=== PATIENT | female | born 1960 | race Caucasian/White ===

== ENCOUNTER 2019-09-11 08:42 | Emergency (ER) | payer OTHER, SELFPAY ==
[2019-09-11 08:52] VITALS: BP 128/77; PULSE 70; RESP 20; TEMP 36.7; O2SAT 100
--- NOTE | 2019-09-11 08:58 | ED.URI ---
HPI - URI/Sore Throat General Chief Complaint: Upper Respiratory Infection Stated Complaint: sinus infection Time Seen by Provider: 09/11/19 09:10 Source: patient and RN notes reviewed Mode of arrival: ambulatory Limitations: no limitations History of Present Illness HPI Narrative: 59-year-old female presents with concern for sinus congestion, cough. Reports 3-week history of cough, 1 week history of sinus congestion, sinus pain, postnasal drainage. She denies fever, chills, malaise. Reports taking [id number] medications with little relief. MD elicited complaint: nasal congestion Related Data Home Medications Medication Instructions Recorded Confirmed alendronate 09/11/19 atenolol 09/11/19 Allergies Allergy/AdvReac Type Severity Reaction Status Date / Time No Known Allergies Allergy Verified 09/11/19 09:10 Review of Systems Review of Systems: Narrative: CONSTITUTIONAL: Denies malaise, chills, sweats, or fever. EYES: Denies visual changes, redness, or discharge. ENT: Reports rhinorrhea, congestion, sinus pain. Denies otalgia and sore throat. CARDIOVASCULAR: Denies chest pain, palpitations, or edema. RESPIRATORY: Reports cough. Denies dyspnea. GASTROINTESTINAL: Denies abdominal pain, nausea, vomiting, diarrhea SKIN: Denies rash or itching. MUSCULOSKELETAL: Denies myalgia. NEUROLOGIC: Denies headache. All systems reviewed & are unremarkable except as noted in HPI and below PMFSH Comments At time of signature, agree with nursing past medical, surgical, social and family history. There is no relevant family history pertinent to the presenting complaint Exam Narrative: Exam Narrative: GENERAL: Well-appearing, well-nourished, and in no acute distress. HEAD: Normocephalic EYES: PERRLA, conjunctivae clear ENT: Nares clear, turbinates edematous and erythematous, sinus tenderness. Mucous membranes moist. TM pearly hawkins with dull light reflex bilaterally; no tragal tenderness. Oropharynx not erythematous without lesions. Tonsils not enlarged and without exudate, no drooling, no hoarseness, no trismus. NECK: Supple. No lymphadenopathy CHEST: Clear to auscultation, breath sounds equal. No wheezing, rhonchi, rales, or stridor. No respiratory distress, speaks in full sentences. Cough noted HEART: Regular rate and rhythm. No murmur heard. Normal peripheral pulses. SKIN: Warm, dry, no rash. NEURO: Alert and oriented x3. PSYCH: Normal mood and affect Course Course Emergency Course: Patient is aware of diagnosis, understands and agrees to treatment plan. Anticipatory guidance given. Patient agrees to follow-up as directed and is aware of reasons to seek care at the emergency department. Portions of this record may have been created with voice recognition software Vital Signs Vital signs: Vital Signs Temperature 98.0 F 09/11/19 08:52 Pulse Rate 70 09/11/19 08:52 Respiratory Rate 20 09/11/19 08:52 Blood Pressure 128/77 09/11/19 08:52 Pulse Oximetry 100 09/11/19 08:52 Temperature 98.0 F 09/11/19 08:52 Pulse Rate 70 09/11/19 08:52 Respiratory Rate 20 09/11/19 08:52 Blood Pressure 128/77 09/11/19 08:52 Pulse Oximetry 100 09/11/19 08:52 Reviewed. Patient has current diagnosis of hypertension MDM - URI/Sore Throat MDM Narrative Medical decision making narrative: Differential diagnosis considered: Strep pharyngitis, allergic rhinitis, upper respiratory tract infection, sinusitis, rhinosinusitis, nasopharyngitis. viral pharyngitis, otitis media, otitis externa, pneumonia, bronchitis, viral cough syndrome, viral syndrome, and influenza. Exam findings show no acute concerns or changes; patient is non-toxic appearing and is in no distress. Patient is appropriate for outpatient treatment and follow-up. Critical Care Time Critical Care Time Critical Care Time: No Discharge Plan Discharge Clinical Impression: Sinobronchitis Patient Disposition: Home, Self-Care Condition: Stab
== END 2019-09-11 09:30 | disposition home or self-care (01) ==
PROVIDERS: Emergency Provider Nurse Practitioner
DX: J32.9 Chronic sinusitis, unspecified (principal); J40 Bronchitis, not specified as acute or chronic; I10 Essential (primary) hypertension
CPT/HCPCS: 99213; G0463

== ENCOUNTER 2020-02-05 11:37 | Outpatient (CLI) | payer OTHER, SELFPAY | END 2020-02-05 11:38 | disposition home or self-care (01) | LOC: CHSLAB 11:42 | PROVIDERS: PCP Family Medicine; Visit Provider Nurse Practitioner | DX: R05 Cough (principal) | CPT/HCPCS: 36415; 86769 ==

== ENCOUNTER 2020-04-03 07:57 | Outpatient (CLI) | payer OTHER, SELFPAY ==
--- NOTE | ~2020-04-03 | MM_ITS ---
EXAMINATION: MM screening [facility] BI w [place] HISTORY: Screening mammogram TECHNIQUE: Craniocaudal and mediolateral oblique 3-D tomosynthesis images were obtained and synthetic 2-D images were generated. CAD analysis was submitted and interpreted. COMPARISON: 04/01/2019, 03/30/2018, 03/20/2017 bilateral digital screening mammogram examinations BREAST PARENCHYMAL COMPOSITION: There are scattered areas of fibroglandular density. FINDINGS: There is no evidence of suspicious mass, calcification, or architectural distortion to sugg est malignancy in either breast. There has been no suspicious interval change. IMPRESSION: 1. No mammographic evidence of malignancy. 2. Recommend routine screening mammography in one year. BI-RADS Category 1: Negative Reviewed, dictated and finalized at location A.
== END 2020-04-03 07:58 | disposition home or self-care (01) ==
LOC: CHSIMG 07:59
PROVIDERS: PCP Family Medicine; Visit Provider Nurse Practitioner
DX: Z12.31 Encounter for screening mammogram for malignant neoplasm of breast (principal)
CPT/HCPCS: 77063; 77067

== ENCOUNTER 2020-08-01 09:31 | Outpatient (CLI) | payer OTHER, SELFPAY ==
[2020-08-01 10:23] LABS: Alanine Aminotransferase 32 U/L (14-59); Albumin Level 3.9 g/dL (3.4-5.0); Alkaline Phosphatase 120 U/L (46-116); Anion Gap 5 mmol/L (8-16); Aspartate Amino Transferase 17 U/L (15-37); Bilirubin,Total 0.6 mg/dL (0.00-1.00); Blood Urea Nitrogen 11 mg/dL (7-18); Calcium 9.2 mg/dL (8.5-10.1); Carbon Dioxide 31 mmol/L (21-32); Chloride 104 mmol/L (98-108); Cholesterol 180 mg/dL (0-200); Estimated Glomerular Filt Rate > 60; Glucose 100 mg/dL (70-99); HDL Direct 60 mg/dL (40-60); LDL Cholesterol Calculated 104 mg/dL (<130); Osmolality Calculated 289 mOsm/kg (285-295); Potassium 4.8 mmol/L (3.5-5.1); Sodium 140 mmol/L (136-145); Total Protein 7.6 g/dL (6.4-8.2); Triglycerides 78 mg/dL (0-150)
[2020-08-01 10:32] LABS: Thyroid Stimulating Hormone Reflex 1.59 u/IU/mL (0.36-3.74)
[2020-08-03 11:53] LABS: Vitamin D 25 Hydroxy 55 ng/mL (30-100)
== END 2020-08-01 09:32 | disposition home or self-care (01) ==
PROVIDERS: PCP Family Medicine; Visit Provider Nurse Practitioner
DX: M88.9 Osteitis deformans of unspecified bone (principal); E78.2 Mixed hyperlipidemia; I10 Essential (primary) hypertension
CPT/HCPCS: 36415; 80053; 80061; 82306; 84443

== ENCOUNTER 2020-09-11 14:21 | Outpatient (CLI) | payer OTHER, SELFPAY ==
--- NOTE | ~2020-09-11 | DEXA_ITS ---
Bone Density Report Name: Jazzmine Moya Age: 60 Sex: Female Ethnicity: White Date of : 1960 Indication: osteopenia; height loss; Referring Provider: Tushar, Deb Sloan Study: Bone densitometry was performed. Exam Date: September 11, 2020 Accession number: [id number] Bone Density: Region BMD T-score Z-score Classification AP Spine(L1-L4) 0.933 -1.0 0.5 Normal Femoral Neck (Left) 0.759 -0.8 0.6 Normal Total Hip (Left) 0.882 -0.5 0.6 Normal Femoral Neck (Right) 0.664 -1.7 -0.3 Osteopenia Total Hip (Right) 0.783 -1.3 -0.2 Osteopenia Femoral Neck Mean 0.712 -1.2 0.1 Osteopenia Total Hip Mean 0.833 -0.9 0.2 Normal World Health Organization criteria for BMD impression classify patients as: Normal (T-score at or above -1.0), Osteopenia (T-score between -1.0 and -2.5), or Osteoporosis (T-score at or below -2.5). 10-year Fracture Risk(1): Major Osteoporotic Fracture 8.7% Hip Fracture 0.8% Reported Risk Factors: [place] (), Neck BMD=0.664, BMI=28.2 (1) FRAX(R) Version 3.08. Fracture probability calculated for an untreated patient. Fracture probability may be lower if the patient has received treatment. Previous Exams: Region Exam Age BMD T-score BMD Change BMD Change Date g/cm2 vs Baseline vs Previous AP Spine (L1-L4) 09/11/2020 60 0.933 -1.0 -0.010 (-1.1%) -0.010 (-1.1%) 09/04/2018 58 0.943 -0.9 Total Hip(Left) 09/11/2020 60 0.882 -0.5 -0.049 (-5.3%) -0.049 (-5.3%) 09/04/2018 58 0.932 -0.1 Total Hip(Right) 09/11/2020 60 0.783 -1.3 -0.021 (-2.6%) -0.021 (-2.6%) 09/04/2018 58 0.804 -1.1 *Denotes significance at 95% confidence level, LSC for AP Spine = 0.022 g/cm2, LSC for Total Hip = 0.027 g/cm2 # Denotes dissimilar scan types or analysis methods Clinical Information Provided by Patient: Has used the following medications: Fosamax (i.e. alendronate), Vitamin D, Calcium Patient maximum height was 62 No regular weight bearing exercise Drinks caffeinated beverages Onset of menses at age 9 Number of children 3 Impression: The patient has low bone mass, based on the Right Femoral Neck T-score. No significant bone loss was observed. Discussion: BONE DENSITY IS LOW AT ONE OR MORE SKELETAL SITES. This patient's lowest T-score is low at one or more skeletal sites. It meets the World Health Organization's (WHO) criteria for ?low bone mass? (T-score between -1.0 and -2.5).
== END 2020-09-11 14:22 | disposition home or self-care (01) ==
LOC: CHSIMG 14:22
PROVIDERS: PCP Family Medicine; Visit Provider Nurse Practitioner
DX: N95.9 Unspecified menopausal and perimenopausal disorder (principal)
CPT/HCPCS: 77080

== ENCOUNTER 2021-04-09 07:04 | Outpatient (CLI) | payer OTHER, SELFPAY ==
--- NOTE | ~2021-04-09 | MM_ITS ---
EXAMINATION: MM screening [facility] BI w [place] HISTORY: Screening mammogram TECHNIQUE: Craniocaudal and mediolateral oblique 3-D tomosynthesis images were obtained and synthetic 2-D images were generated. CAD analysis was submitted and interpreted. COMPARISON: 04/03/2020, 04/01/2019, 03/30/2018 bilateral digital screening mammogram examinations BREAST PARENCHYMAL COMPOSITION: There are scattered areas of fibroglandular density. FINDINGS: There is no evidence of suspicious mass, calcification, or architectural distortion to sugg est malignancy in either breast. There has been no suspicious interval change. IMPRESSION: 1. No mammographic evidence of malignancy. 2. Recommend routine screening mammography in one year. BI-RADS Category 1: Negative Reviewed, dictated and finalized at location A.
== END 2021-04-09 07:05 | disposition home or self-care (01) ==
LOC: CHSIMG 07:06
PROVIDERS: PCP Family Medicine; Visit Provider Family Medicine
DX: Z12.31 Encounter for screening mammogram for malignant neoplasm of breast (principal)
CPT/HCPCS: 77063; 77067

== ENCOUNTER 2021-08-03 07:12 | Outpatient (CLI) | payer OTHER, SELFPAY ==
[2021-08-03 08:05] LABS: Alanine Aminotransferase 33 U/L (14-59); Albumin Level 3.5 g/dL (3.4-5.0); Alkaline Phosphatase 111 U/L (46-116); Anion Gap 10 mmol/L (8-16); Aspartate Amino Transferase 30 U/L (15-37); Bilirubin,Total 0.5 mg/dL (0.00-1.00); Blood Urea Nitrogen 12 mg/dL (7-18); Calcium 8.8 mg/dL (8.5-10.1); Carbon Dioxide 28 mmol/L (21-32); Chloride 106 mmol/L (98-108); Cholesterol 164 mg/dL (0-200); Estimated Glomerular Filt Rate > 60; Free T4 Free Thyroxine 0.99 ng/dL (0.76-1.46); Glucose 95 mg/dL (70-99); HDL Direct 52 mg/dL (40-60); LDL Cholesterol Calculated 92 mg/dL (<130); Osmolality Calculated 297 mOsm/kg (285-295); Potassium 4.5 mmol/L (3.5-5.1); Sodium 144 mmol/L (136-145); Thyroid Stimulating Hormone 1.74 uIU/mL (0.36-3.74); Total Protein 6.9 g/dL (6.4-8.2); Triglycerides 98 mg/dL (0-150)
[2021-08-07 14:35] LABS: Vitamin D 25 Hydroxy 54 ng/mL (30-100)
== END 2021-08-03 07:13 | disposition home or self-care (01) ==
LOC: CHSLAB 07:15
PROVIDERS: PCP Family Medicine; Visit Provider Nurse Practitioner
DX: E78.2 Mixed hyperlipidemia (principal); M88.9 Osteitis deformans of unspecified bone; I10 Essential (primary) hypertension
CPT/HCPCS: 36415; 80053; 80061; 82306; 84439; 84443

== ENCOUNTER 2022-04-12 07:16 | Outpatient (CLI) | payer OTHER, SELFPAY ==
--- NOTE | ~2022-04-12 | MM_ITS ---
EXAMINATION: MM screening [facility] BI w [place] HISTORY: Screening mammogram TECHNIQUE: Craniocaudal and mediolateral oblique 3-D tomosynthesis images were obtained and synthetic 2-D images were generated. CAD analysis was submitted and interpreted. COMPARISON: 04/09/2021, 04/03/2020, 04/01/2019 BREAST PARENCHYMAL COMPOSITION: There are scattered areas of fibroglandular density. FINDINGS: There is no suspicious mass, calcification, or architectural distortion to suggest malignan cy in either breast. There has been no suspicious interval change. IMPRESSION: 1. No mammographic evidence of malignancy. 2. Recommend routine screening mammography in one year. BI-RADS Category 1: Negative Reviewed, dictated and finalized at location A.
== END 2022-04-12 07:17 | disposition home or self-care (01) ==
LOC: CHSIMG 07:18
PROVIDERS: PCP Family Medicine; Visit Provider Nurse Practitioner
DX: Z12.31 Encounter for screening mammogram for malignant neoplasm of breast (principal)
CPT/HCPCS: 77063; 77067

== ENCOUNTER 2022-08-07 09:42 | Outpatient (CLI) | payer OTHER, SELFPAY ==
[2022-08-07 10:38] LABS: Alanine Aminotransferase 24 U/L (14-59); Albumin Level 3.8 g/dL (3.4-5.0); Alkaline Phosphatase 122 U/L (46-116); Anion Gap 5 mmol/L (8-16); Aspartate Amino Transferase 19 U/L (15-37); Bilirubin,Total 0.5 mg/dL (0.00-1.00); Blood Urea Nitrogen 11 mg/dL (7-18); Calcium 8.9 mg/dL (8.5-10.1); Carbon Dioxide 30 mmol/L (21-32); Chloride 103 mmol/L (98-108); Cholesterol 184 mg/dL (0-200); Estimated Glomerular Filt Rate > 60; Glucose 98 mg/dL (70-99); HDL Direct 66 mg/dL (40-60); LDL Cholesterol Calculated 104 mg/dL (<130); Osmolality Calculated 285 mOsm/kg (285-295); Potassium 4.1 mmol/L (3.5-5.1); Sodium 138 mmol/L (136-145); Total Protein 7.4 g/dL (6.4-8.2); Triglycerides 68 mg/dL (0-150)
[2022-08-07 10:41] LABS: Thyroid Stimulating Hormone Reflex 1.92 u/IU/mL (0.36-3.74)
== END 2022-08-07 09:43 | disposition home or self-care (01) ==
LOC: CHSLAB 09:45
PROVIDERS: Nurse Practitioner; PCP Family Medicine; Visit Provider Nurse Practitioner
DX: I10 Essential (primary) hypertension (principal)
CPT/HCPCS: 36415; 80053; 80061; 84443

== ENCOUNTER 2022-09-16 17:42 | Outpatient (CLI) | payer OTHER, SELFPAY ==
--- NOTE | ~2022-09-16 | XR_ITS ---
EXAMINATION: XR scoliosis survey DATE: 09/16/2022 18:21 INDICATION: Scoliosis. TECHNIQUE: Anteroposterior and lateral views of the entire spine standing were obtained. COMPARISON: None. FINDINGS: There are 12 pairs of ribs. There are 5 nonrib-bearing lumbar segments. There is 39 degrees levoscoliosis from T2 to T8 by the Perez method. There is 45 degrees dextroscoliosis from T8 to L2. T here is kyphosis of thoracic spine. There is moderate cervical spondylosis and severe thoracic and lakisha mbar spondylosis. There are surgical clips in the right abdomen. IMPRESSION: 1. Scoliosis. Reviewed, dictated and finalized at location A. [employer] IMPRESSION: 1. Scoliosis.
== END 2022-09-16 17:43 | disposition home or self-care (01) ==
LOC: ANHIMG 17:44
PROVIDERS: PCP Family Medicine; Visit Provider Nurse Practitioner
DX: M41.9 Scoliosis, unspecified (principal)
CPT/HCPCS: 72082

== ENCOUNTER 2022-09-18 09:48 | Outpatient (CLI) | payer OTHER, SELFPAY ==
--- NOTE | ~2022-09-18 | DEXA_ITS ---
Bone Density Report Name: SHAYE FREEMAN Age: 62 Sex: Female Ethnicity: White Date of : 1960 Indication: postmenopausal; screening for osteoporosis; height loss; Referring Provider: Tushar, Deb Sloan Study: Bone densitometry was performed. Exam Date: September 18, 2022 Accession number: [id number] Bone Density: Region BMD T-score Z-score Classification AP Spine(L1-L4) 0.886 -1.5 0.2 Osteopenia Femoral Neck (Left) 0.704 -1.3 0.2 Osteopenia Total Hip (Left) 0.858 -0.7 0.5 Normal Femoral Neck (Right) 0.641 -1.9 -0.4 Osteopenia Total Hip (Right) 0.795 -1.2 0.0 Osteopenia Femoral Neck Mean 0.673 -1.6 -0.1 Osteopenia Total Hip Mean 0.827 -0.9 0.2 Normal World Health Organization criteria for BMD impression classify patients as: Normal (T-score at or above -1.0), Osteopenia (T-score between -1.0 and -2.5), or Osteoporosis (T-score at or below -2.5). 10-year Fracture Risk(1): Major Osteoporotic Fracture 9.6% Hip Fracture 1.2% Reported Risk Factors: [place] (), Neck BMD=0.641, BMI=28.7 (1) FRAX(R) Version 3.08. Fracture probability calculated for an untreated patient. Fracture probability may be lower if the patient has received treatment. Clinical Information Provided by Patient: Has used the following medications: Fosamax (i.e. alendronate), Vitamin D, Calcium Patient maximum height was 64 Menopause Age: 45 Drinks caffeinated beverages Onset of menses at age 9 Number of children 3 Impression: The patient has low bone mass, based on the Right Femoral Neck T-score. Discussion: BONE DENSITY IS LOW AT ONE OR MORE SKELETAL SITES. This patient's lowest T-score is low at one or more skeletal sites. It meets the World Health Organization's (WHO) criteria for ?low bone mass? (T-score between -1.0 and -2.5). The patient's 10-year risk of fracture as calculated by FRAX is less than the threshold where pharmacological therapy is recommended by the National Osteoporosis Foundation (NOF). However, all treatment decisions require clinical judgment and consideration of individual patient factors, including patient preferences, comorbidities, previous drug use, risk factors not captured in the FRAX model (e.g., frailty, falls, vitamin D deficiency, increased bone turnover, interval significant decline in bone density) and possible under or overestimation of fracture risk by FRAX. The patient should follow a healthful lifestyle (good nutrition with adequate calcium and vitamin D, and appropriate weight-bearing exercise). Follow-Up: Consider repeating this study in 2 to 3 years to reassess this patient's status, or sooner if there is some new clinical indication. Reported by: Dr. Rell uCellar on 09/18/2022 10:22:00 AM.
== END 2022-09-18 09:49 | disposition home or self-care (01) ==
LOC: CHSIMG 09:51
PROVIDERS: PCP Nurse Practitioner; Visit Provider Nurse Practitioner
DX: M88.9 Osteitis deformans of unspecified bone (principal); Z78.0 Asymptomatic menopausal state; M85.89 Other specified disorders of bone density and structure, multiple sites
CPT/HCPCS: 77080

== ENCOUNTER 2023-02-18 16:52 | Outpatient (CLI) | payer OTHER, SELFPAY ==
--- NOTE | ~2023-02-18 | XR_ITS ---
EXAM: XR hip LT min 2V DATE: 02/18/2023 17:24 HISTORY: left hip pain/NO TRAUMA . COMPARISON: None available. FINDINGS: A surgical clip projects over the left lateral abdomen. Normal mineralization. No fracture or dislocation. No lytic or blastic lesion. Lumbar scoliosis and mild lumbar degenerative disc diseas e. Mild degenerative changes present in the left SI joint, left hip, and pubic symphysis. No erosion or periosteal change. Soft tissues within normal limits. 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 Mild osteitis pubis. Reviewed, dictated and finalized at location K. 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 Mild osteitis pubis .
== END 2023-02-18 16:53 | disposition home or self-care (01) ==
LOC: CHSIMG 16:52
PROVIDERS: PCP Nurse Practitioner; Visit Provider Nurse Practitioner
DX: M25.552 Pain in left hip (principal); M16.0 Bilateral primary osteoarthritis of hip; M86.8X8 Other osteomyelitis, other site
CPT/HCPCS: 73502

== ENCOUNTER 2023-03-27 03:20 | Day surgery (SDC) | payer OTHER, SELFPAY ==
[2023-03-13 09:43] VITALS: BMI 29.4
[2023-03-27 07:17] VITALS: BP 136/72; PULSE 53; RESP 18; TEMP 36.2; O2SAT 100
[2023-03-27] MEDS: LACTATED RINGERS 1,000 ML 150 ML IV CONT (07:25)
--- NOTE | 2023-03-27 08:34 | WPDANESEPPF ---
Anes - Initial Pre Proc Eval Procedure: Operation Date: 03/27/23 08:30 Proposed Procedures p Screening Colonoscopy - Jeffy Mccall DO Date/Time: 03/27/23 08:34 Surgeon: Jeffy Mccall DO Pre Op Diagnosis: neoplasm screening Patient Data Age: 62 Gender: F Height: 1.57 m Weight: 71.5 kg Last Vital Signs Temp 97.1 F L 03/27/23 07:17 Pulse 53 L 03/27/23 07:17 Resp 18 03/27/23 07:17 BP 136/72 03/27/23 07:17 Pulse Ox 100 03/27/23 07:17 O2 Del Method Room Air 03/27/23 07:17 Allergies Allergy/AdvReac Type Severity Reaction Status Date / Time No Known Allergies Allergy Verified 03/27/23 07:16 Home Medications Medication Instructions Recorded Confirmed Type alendronate 35 mg tablet 35 mg PO WEEKLY 10/11/20 03/13/23 History ascorbic acid (vitamin C) 500 mg 500 mg PO DAILY 10/11/20 03/13/23 History capsule atenolol 25 mg tablet 25 mg PO DAILY 10/11/20 03/13/23 History calcium carbonate 600 mg calcium 600 mg PO BID 10/11/20 03/13/23 History (1,500 mg) tablet (Calcium) cholecalciferol (vitamin D3) 50 50 mcg PO BID 10/11/20 03/13/23 History mcg (2,000 unit) capsule multivitamin (Daily Multi-Vitamin 1 tablet PO DAILY 10/11/20 03/13/23 History tablet) Patient hx anesthesia problems: none Family hx anesthesia problems: none Results Review: All pre-operative results and documents have been reviewed as part of the pre-operative evaluation. [facility] Past Medical History Medical History Arthritis Hypertension Osteopenia Surgical History Surgical History History of appendectomy History of arthroscopic knee surgery menisectomy History of cholecystectomy History of colonoscopy 02/2018 History of total right knee replacement [place] teeth removed Family History Family History Mother Diabetes mellitus Hypertension Liver cancer Father Acute myocardial infarction Paget disease of bone Social History Social History (Updated 01/15/23 @ 08:04 by Yuridia Barragan MA) Smoking status: Never smoker Alcohol intake: current Drinks per week: 3 Alcohol use details: wine Substance use: never Substance use type: does not use Lack of Transportation: No Lack of Food: Never True Current Housing: I Have Housing Concerned About Future Housing: No Difficulty Paying Gas/Electric Bills: No Difficulty Paying for Meds: No Currently Unemployed: YES Education: Associate Degree Difficulty w/ Childcare or Family Care: No Living arrangements: with family Occupation/Education: occupation Gender identity (if verbalized by the patient): Female Sexual Orientation (if Verbalized by the Patient): Straight or Heterosexual Spiritual care concerns: No Anes - Eval Final PreProcedure Day of Procedure 03/27/23 08:34 Patient weight: normal Heart: regular rate and rhythm Lungs: clear to auscultation Airway: Mallampati scale class II Neurological: alert and oriented Last oral intake: >/= 8 hours ASA classification: II Emergent: no Anesthetic plan: proceed Anesthesia type and monitoring: general GIVS and standard monitoring Results Review: All pre-operative results and documents have been reviewed as part of the pre-operative evaluation. Informed Consent: The patient's anesthetic plan and its attendant risks and benefits were discussed with the patient/family/POA. Questions were solicited and answers provided to the satisfaction of the patient/family/POA.
--- NOTE | 2023-03-27 09:08 | PM.IMHP ---
H&P: HPI History of Present Illness Date/Time: 03/27/23 09:08 Chief Complaint: History of colon polyps Narrative: This is a 62-year-old woman who presents for colonoscopy. Her last colonoscopy was 5 years ago. She denies any hematochezia or melena. She denies family history of colon cancer. Review of Systems Review of Systems: All systems reviewed & are unremarkable except as noted in HPI and below Constitutional: Constitutional: Denies chills, Denies fever(s), Denies headache(s) and Denies weight loss Eyes: Eyes: Denies change in vision ENT: Denies dizziness, Denies headache(s), Denies neck mass and Denies throat swelling Cardiovascular: Cardiovascular: Denies chest pain, Denies lightheadedness and Denies dyspnea Respiratory: Respiratory: Denies cough, Denies dyspnea and Denies wheezing Gastrointestinal: Gastrointestinal: Denies abdominal pain, Denies change in bowel habits, Denies nausea and Denies vomiting Genitourinary: Genitourinary: Denies hematuria and Denies dysuria Musculoskeletal: Musculoskeletal: Reports as per HPI Integumentary/Breasts: Skin/Breast: Reports as per HPI Neurologic: Denies dizziness and Denies headache(s) Allergic/Immunologic: Allergic/Immunologic: Denies throat swelling and Denies wheezing [facility] Past Medical History Medical History Arthritis Hypertension Osteopenia Surgical History Surgical History History of appendectomy History of arthroscopic knee surgery menisectomy History of cholecystectomy History of colonoscopy 02/2018 History of total right knee replacement [place] teeth removed Family History Family History Mother Diabetes mellitus Hypertension Liver cancer Father Acute myocardial infarction Paget disease of bone Social History Social History (Updated 01/15/23 @ 08:04 by Yuridia Barragan MA) Smoking status: Never smoker Alcohol intake: current Drinks per week: 3 Alcohol use details: wine Substance use: never Substance use type: does not use Lack of Transportation: No Lack of Food: Never True Current Housing: I Have Housing Concerned About Future Housing: No Difficulty Paying Gas/Electric Bills: No Difficulty Paying for Meds: No Currently Unemployed: YES Education: Associate Degree Difficulty w/ Childcare or Family Care: No Living arrangements: with family Occupation/Education: occupation Gender identity (if verbalized by the patient): Female Sexual Orientation (if Verbalized by the Patient): Straight or Heterosexual Spiritual care concerns: No Meds Home Medications and Allergies Home Medications Medication Instructions Recorded Confirmed Type alendronate 35 mg tablet 35 mg PO WEEKLY 10/11/20 03/13/23 History ascorbic acid (vitamin C) 500 mg 500 mg PO DAILY 10/11/20 03/13/23 History capsule atenolol 25 mg tablet 25 mg PO DAILY 10/11/20 03/13/23 History calcium carbonate 600 mg calcium 600 mg PO BID 10/11/20 03/13/23 History (1,500 mg) tablet (Calcium) cholecalciferol (vitamin D3) 50 50 mcg PO BID 10/11/20 03/13/23 History mcg (2,000 unit) capsule multivitamin (Daily Multi-Vitamin 1 tablet PO DAILY 10/11/20 03/13/23 History tablet) Allergies Allergy/AdvReac Type Severity Reaction Status Date / Time No Known Allergies Allergy Verified 03/27/23 07:16 Vital Signs Vital Signs - 24 hr 03/27/23 07:17 Temperature 36.2 C L Pulse Rate 53 L Respiratory Rate 18 Blood Pressure 136/72 Pulse Oximetry 100 Oxygen Delivery Room Air Exam Const: General: no acute distress and alert Orientation/consciousness: patient oriented x3 HENMT: Head: normocephalic and atraumatic Ears: hearing grossly normal bilaterally Face/Nose/Sinus: Normal nares present Mouth: Yes Normal oral and palatal mucosa present Ey
[2023-03-27 09:45] VITALS: BP 113/65; PULSE 68; RESP 20; O2SAT 98
[2023-03-27 09:55] VITALS: BP 134/70; PULSE 54; RESP 20; O2SAT 100
[2023-03-27 10:05] VITALS: BP 125/64; PULSE 52; RESP 20; O2SAT 100
== END 2023-03-27 10:27 | disposition home or self-care (01) ==
PROVIDERS: PCP Nurse Practitioner; Visit Provider Surgery
PROC: 0DJD8ZZ Inspection of Lower Intestinal Tract, Via Natural or Artificial Opening Endoscopic (ICD-10-PCS; CPT 45378; principal; 2023-03-27 08:30)
DX: Z12.11 Encounter for screening for malignant neoplasm of colon (principal); K57.30 Diverticulosis of large intestine without perforation or abscess without bleeding; Z86.010 Personal history of colon polyps; I10 Essential (primary) hypertension; M85.80 Other specified disorders of bone density and structure, unspecified site
CPT/HCPCS: 45378; J2704; J7120

== ENCOUNTER 2023-04-11 09:37 | Outpatient (CLI) | payer OTHER, SELFPAY ==
--- NOTE | ~2023-04-11 | XR_ITS ---
Right wrist Technique: PA, oblique, lateral, and ulnar deviation views were obtained. Clinical History: Arthritis Findings: No acute fracture or dislocation is seen. Osseous alignment is anatomic. There is minimal d egenerative change at the first CMC joint. Soft tissues are unremarkable. Impression: Minimal degenerative change at the first CMC joint. Reviewed, dictated and finalized at [facility]. Impression: Minimal degenerative change at the first CMC joint.
== END 2023-04-11 09:38 | disposition home or self-care (01) ==
LOC: ANHIMG 09:42
PROVIDERS: PCP Nurse Practitioner; Visit Provider Plastic Surgery
DX: M19.031 Primary osteoarthritis, right wrist (principal)
CPT/HCPCS: 73110

== ENCOUNTER 2023-04-15 07:22 | Outpatient (CLI) | payer OTHER, SELFPAY ==
--- NOTE | ~2023-04-15 | MM_ITS ---
EXAMINATION: MM screening [facility] BI w [place] HISTORY: Screening mammogram TECHNIQUE: Craniocaudal and mediolateral oblique 3-D tomosynthesis images were obtained and synthetic 2-D images were generated. CAD analysis was submitted and interpreted. COMPARISON: 04/12/2022, 04/09/2021, 04/03/2020 bilateral screening mammogram examinations BREAST PARENCHYMAL COMPOSITION: There are scattered areas of fibroglandular density.. FINDINGS: There is no evidence of suspicious mass, calcification, or architectural distortion to sugg est malignancy in either breast. There has been no suspicious interval change. IMPRESSION: 1. No mammographic evidence of malignancy. 2. Recommend routine screening mammography in one year. BI-RADS Category 1: Negative Reviewed, dictated and finalized at location A.
== END 2023-04-15 07:23 | disposition home or self-care (01) ==
LOC: CHSIMG 07:23
PROVIDERS: PCP Nurse Practitioner; Visit Provider Nurse Practitioner
DX: Z12.31 Encounter for screening mammogram for malignant neoplasm of breast (principal)
CPT/HCPCS: 77063; 77067

== ENCOUNTER 2023-08-14 09:48 | Outpatient (CLI) | payer OTHER, SELFPAY ==
[2023-08-14 10:07] LABS: Basophils Absolute Auto 0.02 K/mm3 (0.00-0.10); Basophils Percent Auto 0.3 % (0.0-1.0); Eosinophils Percent Auto 3.1 % (1.0-6.0); Hematocrit 42.5 % (35.0-42.0); Immature Granulocyte Absolute 0.02 K/mm3 (0.00-0.00); Immature Granulocyte Percent A 0.3 % (0.0-0.0); Lymphocytes Absolute Auto 1.93 K/mm3 (1.10-4.50); Lymphocytes Percent Auto 29.7 % (18.0-42.0); Mean Corpuscular HGB Conc 32.9 g/dL (32.0-36.0); Mean Corpuscular Hemoglobin 28.6 pg (27.0-31.0); Mean Corpuscular Volume 86.9 fL (78.0-102.0); Mean Platelet Volume 9.8 fl (9.2-11.8); Monocytes Absolute Auto 0.42 K/mm3 (0.10-0.90); Monocytes Percent Auto 6.5 % (2.0-11.0); Neutrophils Absolute Auto 3.9 K/mm3 (1.7-7.2); Neutrophils Percent Auto 60.1 % (50.0-70.0); Platelet Count Result 205 K/mm3 (150-420); Red Blood Count 4.89 M/mm3 (4.20-5.40); Red Cell Distribution Width 12.4 % (11.6-14.4); White Blood Count 6.5 K/mm3 (4.8-10.8)
[2023-08-14 10:58] LABS: Alanine Aminotransferase 56 U/L (14-59); Albumin Level 3.5 g/dL (3.4-5.0); Alkaline Phosphatase 119 U/L (46-116); Anion Gap 9 mmol/L (8-16); Aspartate Amino Transferase 30 U/L (15-37); Bilirubin,Total 0.7 mg/dL (0.00-1.00); Blood Urea Nitrogen 11 mg/dL (7-18); Calcium 9.4 mg/dL (8.5-10.1); Carbon Dioxide 30 mmol/L (21-32); Chloride 102 mmol/L (98-108); Estimated Glomerular Filt Rate > 60; Glucose 103 mg/dL (70-99); Osmolality Calculated 291 mOsm/kg (285-295); Potassium 4.4 mmol/L (3.5-5.1); Sodium 141 mmol/L (136-145); Total Protein 7.3 g/dL (6.4-8.2); Vitamin B12 759 pg/mL (193-986)
[2023-08-14 11:22] LABS: Thyroid Stimulating Hormone Reflex 1.45 u/IU/mL (0.36-3.74)
[2023-08-18 21:08] LABS: Vitamin D 25 Hydroxy 70 ng/mL (30-100)
== END 2023-08-14 09:49 | disposition home or self-care (01) ==
LOC: CHSLAB 09:50
PROVIDERS: PCP Nurse Practitioner; Visit Provider Nurse Practitioner
DX: R53.83 Other fatigue (principal); I10 Essential (primary) hypertension; M85.80 Other specified disorders of bone density and structure, unspecified site
CPT/HCPCS: 36415; 80053; 82306; 82607; 84443; 85025

== ENCOUNTER 2023-09-16 15:43 | Outpatient (RCR) | payer OTHER, SELFPAY ==
--- NOTE | 2023-09-17 11:59 | BUOTOPEVAL ---
Assessment and note entered by Hailee Funes, OT Evaluation Information Assessment Status Evaluation Diagnosis Right wrist pain Onset 2022 Subjective Information The patient stated 7-8/10 pain at its worst reported as aching pain but will sometimes get worse if she is holding or pinching something. The patient stated that it does not always hurt. At the time of evaluation the patient reports 1/10 pain at base of right thumb. The patient reports that about 1 year ago she was quilting for 2 hours each night to get a quilt done quickly and it began hurting soon after that. She has a hard time pinching and moving her wrist at the same time which is what she does a lot of the time. The patient reports no numbness/tingling in hand. She reports that heat, Tylenol, and Volteren cream seems to help the pain. Reported Pain Level Pain Score 1: Self Report Assessment OT Clinical Summary The patient is a 63 year old female who was referred to outpatient OT due to pain in R wrist. The patient's PMH includes but is not limited to HTN, OA. The patient previously demonstrated WNL pinch strength, fine motor coordination and no pain. The patient now demonstrates minimally impaired pinch and fine motor coordination and moderate pain during work tasks and leisure tasks which affect her ability to perform ADLs/IADLs without discomfort. The patient requires skilled OT to address deficits and return to PLOF. Plan of Care Interventions Therapeutic Exercise,Manual Therapy,Neuro Re- education,Therapeutic Activities,Hot Pack/Cold Pack,Electrical Stimulation,Sensory Integrative Techn,Self-Care/Home Management,Check Out for Orthotic/Pr,Ultrasound OT Services Indicated Yes Treatment Frequency and 2x/week for 10 visits. Duration These treatments will address the objective and functional deficits as defined above. The patient will be advanced safely and appropriately in order for the patient to progress towards his/her prior level of function. Additional exercises will be introduced and as well as a comprehensive home exercise program upon discharge, if needed, ?to ensure carryover of functional gains achieved in the clinic. This treatment plan has been reviewed and agreement upon by the patient.
--- NOTE | 2023-10-14 14:18 | OPREHPOC ---
Outpatient Therapy Plan of Care This is a Multidisciplinary Plan of Care that may contain components documented by all disciplines (PT, OT, and ST.) OT Goal 1 Goal The patient will demonstrate 100% knowledge and return demonstration with UE HEP in order to decrease pain and improve function. Target Visit 10 Progress Met Comment Client verbalized and demonstrated understanding of UE HEP. OT Problem 2 OT Problem #2 Pain OT Goal 1 Goal The patient will demonstrate decreased pain in R wrist reporting <2/10 pain during sewing tasks. Target Visit 10 Progress Met Comment Client reports that her pain at most is rated between a 1/10 and 2/10 after repetitive use of right hand. OT Problem 3 OT Problem #3 Impaired Strength OT Goal 1 Goal The patient will demonstrate increased pinch strength of R UE demonstrating >9 lbs lateral pinch in order to perform ADLs and leisure tasks without dropping. Target Visit 10 Progress Met Comment Right hand lateral pinch strength shown at 11lbs.. OT Problem 4 OT Problem #4 Impaired Coordination OT Goal 1 Goal The patient will demonstrate increased fine motor coordination by performing 9-hole peg test in <20 seconds in order to perform daily tasks. Target Visit 10 Progress Met Comment Client completed 9 Hole-Peg Test using right hand in 17 seconds
--- NOTE | 2023-10-14 14:19 | OTOPDC ---
Assessment and note entered by Jie Duran, OT Evaluation Information Assessment Status Discharge Diagnosis Right wrist pain Onset 2022 Subjective Information Client reports significant improvement in right hand function since attending OT. Client state, I 've been sewing and typically only have about 1 to 2 out of 10 pain in my thumb joint once I'm done. . Client reported that with rest, her pain typically subsides back to a 0/10. Client also expressed that she does not have difficulty cutting her food, but will have soreness in her right hand with chopping up a lot vegetables when preparing for dinner. Client feels that she is ready to be discharged from OT services due to her progress made. Reported Pain Level Pain Score 0: Self Report Pain Score 0: Self Report Assessment OT Clinical Summary Client was pleasant throughout OT session and reported . Client has verbalized and demonstrated understanding of HEP, which allow client to maintain progress made one discharged. Client has achieved all LTG this date and reported increased participation in ADLs and IADLs. Client has made improvement in right lateral pinch strength from 7 lbs. to 11 lbs. and right hand FMC with 9 Hole Peg test previously being completed in 22 seconds and was completed this date in 17 seconds. Progress with right hand pinch strength and coordination translates to less difficulty performing sewing tasks, which client previously had significant pain a during and after completing . Client reported that at most, her pain radiates between a rating of 1/10 to 2/10 in right hand after repetitive and prolonged use. Client's Quick DASH score has also decreased from 13.6% to 9.1% indicating less difficulty and pain with performing ADL and IADL tasks. Client is being discharged from skilled OT services due to goals being met and client reporting improved overall function. Plan of Care OT Services Indicated No
== END 2023-10-14 20:00 | disposition home or self-care (01) ==
LOC: CHSOT 15:43
PROVIDERS: Visit Provider Nurse Practitioner
DX: M25.531 Pain in right wrist (principal)
CPT/HCPCS: 97035; 97110; 97140; 97165; 97530

== ENCOUNTER 2024-04-19 07:16 | Outpatient (CLI) | payer OTHER, SELFPAY ==
--- NOTE | ~2024-04-19 | MM_ITS ---
EXAMINATION: MM screening [facility] BI w [facility] HISTORY: Screening TECHNIQUE: Craniocaudal and mediolateral oblique 3-D tomosynthesis images were obtained and synthetic 2-D images were generated. CAD analysis was submitted and interpreted. COMPARISON: Comparison to multiple prior studies sequentially, with oldest reviewed study dated 03/30. BREAST PARENCHYMAL COMPOSITION: Not dense: There are scattered areas of fibroglandular density. FINDINGS: There is no evidence of suspicious mass, calcification, or architectural distortion to sugg est malignancy in either breast. There has been no suspicious interval change. IMPRESSION: 1. No mammographic evidence of malignancy. 2. Recommend routine screening mammography in one year. BI-RADS Category 1: Negative Reviewed, dictated and finalized at location B.
== END 2024-04-19 07:17 | disposition home or self-care (01) ==
LOC: CHSIMG 07:18
PROVIDERS: PCP Nurse Practitioner; Visit Provider Nurse Practitioner Family
DX: Z12.31 Encounter for screening mammogram for malignant neoplasm of breast (principal)
CPT/HCPCS: 77063; 77067

== ENCOUNTER 2024-07-20 11:28 | Outpatient (RCR) | payer OTHER, SELFPAY ==
--- NOTE | 2024-07-20 12:02 | OPREHPOC ---
Outpatient Therapy Plan of Care This is a Multidisciplinary Plan of Care that may contain components documented by all disciplines (PT, OT, and ST.) PT Problem 1 PT Problem #1 Knowledge Deficit PT Goal 1 Goal / Goal Update 1. compliant with home tanmay and elevated sleeping position. Target Visit 2 PT Problem 2 PT Problem #2 Impaired Functional Mobility PT Goal 1 Goal / Goal Update 1. no vertigo symptoms in the last week Target Visit 4
--- NOTE | 2024-07-20 12:02 | PTOPEVAL1 ---
Assessment and note entered by JT File, PT Evaluation Information Assessment Status Evaluation ICD-10 Condition Codes (PT) BPPV H81.12 Onset 06/11/24 Subjective Information patient reports she has been having vertigo when looking to the L side laying in bed. she reports the symptoms are short running 15-20 seconds then stop. she reports she was prescribed meclizine. she reports she did take it last night, and is really tired today. she reports when she gets the symptoms the room will spin. she reports the first bout was right after thanksgiving. she reports it went away for a few weeks, but then started back up over juan. Reported Pain Level Pain Score 0: Self Report Assessment PT Clinical Summary mrs. polk is a 63 yo woman who presents to skilled PT services for evaluation and treatment of vertigo. she presents today with signs and symptoms consistent with L BPPV. she displays an upward beat nystagmus to the L side. she was educated in home Reyes maneuver, and instructed to return to skilled PT for follow up treatments/ progression to overcome these symptoms and return to her prior level functional activity performance /quality of life. Plan of Care Interventions Neuro Re-education,Patient/Caregiver Education, Therapeutic Activities,Therapeutic Exercise,Other Other Interventions cannolith repositioning. PT Services Indicated Yes Treatment Frequency and 2x weekly for 4 visits Duration These treatments will address the objective and functional deficits as defined above. The patient will be advanced safely and appropriately in order for the patient to progress towards his/her prior level of function. Additional exercises will be introduced and as well as a comprehensive home exercise program upon discharge, if needed, ?to ensure carryover of functional gains achieved in the clinic. This treatment plan has been reviewed and agreement upon by the patient.
--- NOTE | 2024-07-30 08:16 | OPREHPOC ---
Outpatient Therapy Plan of Care This is a Multidisciplinary Plan of Care that may contain components documented by all disciplines (PT, OT, and ST.) PT Problem 1 PT Problem #1 Knowledge Deficit PT Goal 1 Goal / Goal Update 1. compliant with home tanmay and elevated sleeping position. Target Visit 2 Progress Met PT Problem 2 PT Problem #2 Impaired Functional Mobility PT Goal 1 Goal / Goal Update 1. no vertigo symptoms in the last week Target Visit 4 Progress Met
--- NOTE | 2024-07-30 08:16 | PTOPDC ---
Assessment and note entered by JT File, PT Evaluation Information Assessment Status Discharge ICD-10 Condition Codes (PT) BPPV H81.12 Onset 06/11/24 Subjective Information patient reports she feels great. she reports she has no symptoms of vertigo anymore. she reports she has been back to sleeping in bed and normal daily activities. she reports she is compliant with her habituation exercises at home. Reported Pain Level Pain Score 0: Self Report Assessment PT Clinical Summary mrs. polk presents to skilled PT services for her 3rd skilled PT visit for BPPV. she no longer has symptoms, and is back to normal sleeping and daily activity habits. she has met all goals for skilled PT, and will DC skilled PT as of this date . Plan of Care PT Services Indicated Yes
== END 2024-07-30 08:30 | disposition home or self-care (01) ==
LOC: CHSPT 11:28
DX: H81.10 Benign paroxysmal vertigo, unspecified ear (principal)
CPT/HCPCS: 95992; 97110; 97112; 97161

== ENCOUNTER 2024-08-12 10:03 | Outpatient (CLI) | payer OTHER, SELFPAY ==
[2024-08-12 11:26] LABS: Alanine Aminotransferase 27 U/L (14-59); Alkaline Phosphatase 130 U/L (46-116); Anion Gap 9 mmol/L (4-12); Aspartate Amino Transferase 18 U/L (15-37); Bilirubin,Total 0.6 mg/dL (0.00-1.00); Blood Urea Nitrogen 13 mg/dL (7-18); Calcium 9.8 mg/dL (8.5-10.1); Carbon Dioxide 30 mmol/L (21-32); Chloride 103 mmol/L (98-108); Cholesterol 180 mg/dL (0-200); Estimated Glomerular Filt Rate 57; Glucose 102 mg/dL (70-99); HDL Direct 63 mg/dL (40-60); LDL Cholesterol Calculated 101 mg/dL (<130); Osmolality Calculated 294 mOsm/kg (285-295); Potassium 4.9 mmol/L (3.5-5.1); Sodium 142 mmol/L (136-145); Total Protein 7.2 g/dL (6.4-8.2); Triglycerides 80 mg/dL (0-150)
[2024-08-12 11:32] LABS: Thyroid Stimulating Hormone Reflex 1.03 u/IU/mL (0.36-3.74)
[2024-08-13 07:52] LABS: Vitamin D 25 Hydroxy 81 ng/mL (30-100)
== END 2024-08-12 10:04 | disposition home or self-care (01) ==
LOC: CHSLAB 10:05
PROVIDERS: PCP Nurse Practitioner; Visit Provider Nurse Practitioner
DX: E55.9 Vitamin D deficiency, unspecified (principal); E78.2 Mixed hyperlipidemia; I10 Essential (primary) hypertension
CPT/HCPCS: 36415; 80053; 80061; 82306; 84443

== ENCOUNTER 2024-09-20 08:20 | Outpatient (CLI) | payer OTHER, SELFPAY | END 2024-09-20 08:21 | disposition home or self-care (01) | LOC: CHSIMG 08:23 | PROVIDERS: PCP Nurse Practitioner; Visit Provider Nurse Practitioner | DX: Z78.0 Asymptomatic menopausal state (principal); M85.89 Other specified disorders of bone density and structure, multiple sites | CPT/HCPCS: 77080 ==

== ENCOUNTER 2025-04-21 07:26 | Outpatient (CLI) | payer OTHER, SELFPAY ==
--- NOTE | ~2025-04-21 | MM_ITS ---
EXAMINATION: MM screening [facility]aya BI w [place] HISTORY: Screening TECHNIQUE: Craniocaudal and mediolateral oblique 3-D tomosynthesis images were obtained and synthetic 2-D images were generated. CAD analysis was submitted and interpreted. COMPARISON: Comparison to multiple prior studies sequentially, with oldest reviewed study dated Comparison to multiple prior studies sequentially, with oldest reviewed study dated 04/01/2019. . BREAST PARENCHYMAL COMPOSITION: Not dense: There are scattered areas of fibroglandular density. FINDINGS: There is an developing asymmetry in the upper outer quadrant of the right breast, middle third. The left breast is stable without evidence for malignancy. IMPRESSION: 1. Developing right breast asymmetry upper outer quadrant, middle third. 2. Additional mammographic views and possible breast ultrasound are recommended. BI-RADS Category 0: Incomplete: Needs additional imaging evaluation. Reviewed, dictated and finalized at location B. IMPRESSION: 1. Developing right breast asymmetry upper outer quadrant, middle third. 2. Additional mammographic views and possible breast ultrasound are recommended . BI-RADS Category 0: Incomplete: Needs additional imaging evaluation.
--- OUTSIDE RECORDS SUMMARY | 2025-04-21 07:30 | XMS_ITS | Encounter Summary ---
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
== END 2025-04-21 07:27 | disposition home or self-care (01) ==
LOC: CHSIMG 07:28
DX: Z12.31 Encounter for screening mammogram for malignant neoplasm of breast (principal); N64.89 Other specified disorders of breast
CPT/HCPCS: 77063; 77067